=== PATIENT | male | born 1975 | race Caucasian/White ===

== ENCOUNTER 2019-05-23 15:25 | Emergency (ER) | payer BC ==
[2019-05-23 15:53] VITALS: BP 124/76
--- NOTE | 2019-05-23 16:11 | UC ---
Knee Pain HPI - HPI Summary HPI Summary: 43 yo male presents with RIGHT knee pain. 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 Around 05/15/19 he developed right knee pain on the medical aspect. Since that time has felt stiff, swollen, and unstable at times. He denies any specific injury. Has been resting and elevating with no relief. Has not been taking anything OTC. He saw his PCP this morning and was told it was likely soft tissue and he needs an MRI - they are going to try and schedule on, but will take 2-3 weeks. Pt came here for further evaluation. Denies numbness or tingling. - History of Current Complaint Chief Complaint: UCLowerExtremity Stated Complaint: KNEE PAIN Time Seen by Provider: 05/23/19 16:11 Hx Obtained From: Patient Onset/Duration: Sudden Onset Severity Initially: Moderate Severity Currently: Moderate Pain Intensity: 7 Pain Scale Used: 0-10 Numeric - Allergies/Home Medications Allergies/Adverse Reactions: Allergies Allergy/AdvReac Type Severity Reaction Status Date / Time No Known Allergies Allergy Verified 05/23/19 15:54 Home Medications: Home Medications Levothyroxine TAB* [Synthroid TAB*] 50 mcg PO 05/23/19 [History] PMH/Surg Hx/FS Hx/Imm Hx Endocrine History: Hypothyroidism Respiratory History: Asthma - Surgical History Surgical History: None - Family History Known Family History: Positive: Hypertension - Social History Occupation: Employed Full-time Lives: With Family Alcohol Use: None Substance Use Type: None Smoking Status (MU): Never Smoked Tobacco - Immunization History Most Recent Influenza Vaccination: NO Review of Systems All Other Systems Reviewed And Are Negative: No Constitutional: Positive: Negative Skin: Positive: Negative Respiratory: Positive: Negative Cardiovascular: Positive: Negative Neurovascular: Positive: Negative Musculoskeletal: Positive: Other: - Right knee pain Neurological: Positive: Negative Psychological: Positive: Negative Physical Exam - Summary Physical Exam Summary: GENERAL: NAD. WDWN. No pain distress. SKIN: No rashes, sores, lesions, or open wounds. CHEST: No accessory muscle use. Breathing comfortably and in no distress. CV: Pulses intact popliteal, PT, and DP. Cap refill <2seconds MSK: RIGHT KNEE: FROM - pain with full extension. POSITIVE jeyson on medial aspect. Strength 5/5. No edema or obvious bony deformities. No patella apprehension. Negative Josep, A/P drawer, and varus/valgus stress. NEURO: Alert. Sensations intact and symmetric B/L LEs PSYCH: Age appropriate behavior. Triage Information Reviewed: Yes Vital Signs: Initial Vital Signs Temp 99.0 F 05/23/19 15:49 Pulse 78 05/23/19 15:49 Resp 16 05/23/19 15:49 BP 124/76 05/23/19 15:49 Pulse Ox 97 05/23/19 15:49 Vital Signs Reviewed: Yes Diagnostics - Radiology Knee XR Radiology Interpretation Completed By: Radiologist Summary of Radiographic Findings: IMPRESSION: Small joint effusion with irregularity at the tibial tuberosity. Knee Pain Course/Dx - Course Course Of Treatment: XR as above. Suspect internal derangement of the knee - likely medial meniscus. Discussed at length with the pt. Recommend RICE, starting PT, and will refer him to Orthopedics for further evaluation. - Differential Dx/Diagnosis Provider Diagnosis: Right knee pain Discharge ED - Sign-Out/Discharge Documenting (check all that apply): Patient Departure All imaging exams completed and their final reports reviewed: Yes - Discharge Plan Condition: Stable Disposition: HOME Patient Education Materials: Swollen Knee Joint (ED), Meniscus Tear (ED) Referrals: Reinaldo Barrientos MD [Primary Care Provider] - Neva Herron MD [Medical Doctor] - As Soon As Possible Additional Instructions: If you develop a fever, shortness of breath, chest pain, new or worsening symptoms - please call your PCP or go to the ED immediately. Your knee X-ray was normal today. As discussed; I suspect you may have a meniscus injury to your knee. Please start physical therapy and call Orthopedics at the number below to schedule an appointment for further evaluation as soon as possible - you may benefit from an MRI or knee injections - Billing Disposition and Condition Condition: STABLE Disposition: Home
== END 2019-05-23 17:14 | disposition home or self-care (01) ==
LOC: UCEAST 15:25
DX: M25.561 Pain in right knee (principal); E03.9 Hypothyroidism, unspecified; J45.909 Unspecified asthma, uncomplicated; M25.461 Effusion, right knee; Z79.890 Hormone replacement therapy
CPT/HCPCS: 99211; G0463

== ENCOUNTER 2019-07-17 06:25 | Day surgery (SDC) | payer BC ==
[~2019-07-17 06:25] MED LIST: Buffered Lidocaine 1% SYRIN* 1 ML/SYRINGE INTRADERM ONE; Lactated Ringers 1000 ML Bag* 1,000 ML IV SCH
[2019-07-17] MEDS ORDERED: ceFAZolin 2 GM in NS PREMIX(*) 2 GM/100 ML BAG IVPB ONE (06:43)
[2019-07-17] MEDS ORDERED: ROPIVACAINE 5 MG/ML 30 ML BTL (0.5%) ONE (06:58)
[2019-07-17] MEDS ORDERED: EPINEPHRINE 1 MG/ML 1 ML VIAL ONE (06:58)
[2019-07-17] MEDS ORDERED: methylPREDNISolone ACETATE 80* 80 MG/ML 1 ML VIAL ONE (06:58)
[2019-07-17] MEDS ORDERED: fentaNYL* 50 MCG/ML 2 ML VIAL (100 MCG VIAL) ONE (07:16)
[2019-07-17] MEDS ORDERED: Midazolam* 1 MG/ML 2 ML VIAL (2 MG) ONE (07:17)
[2019-07-17] MEDS ORDERED: Acetaminophen TAB* 325 MG PO PRN (07:24)
[2019-07-17] MEDS ORDERED: Naloxone* 0.4 MG/ML 1 ML VIAL IV PRN (07:24)
[2019-07-17] MEDS ORDERED: Propofol* 10 MG/ML 20 ML BTL ONE (08:17)
[2019-07-17] MEDS ORDERED: Ondansetron INJ* 2 MG/ML VIAL ONE (08:17)
[2019-07-17] MEDS ORDERED: Dexamethasone IV* 4 MG/ML 1 ML (4 MG) ONE (08:17)
[2019-07-17] MEDS ORDERED: Lidocaine 2% PF * 5 ML VIAL ONE (08:17)
[2019-07-17] MEDS ORDERED: Ketorolac INJ* 30 MG/ML 1 ML VIAL ONE (08:55)
[2019-07-17] MEDS: HYDROmorphone INJ1* 1 MG/ML SYRINGE IV PRN ×2 (09:51→10:05)
[2019-07-17] MEDS ORDERED: HYDROmorphone INJ1* 1 MG/ML SYRINGE ONE (09:51)
[2019-07-17 11:44] VITALS: BP 103/68
--- NOTE | 2019-07-18 02:32 | OP ---
DATE OF OPERATION: 07/17/19 - [facility] DATE OF : 75 SURGEON: Neva Herron MD ENGINEER SERGEANT: LUCILA Page. Mr. Ha did help throughout the procedure with preparation of the leg, wound retraction, and manipulation of the knee and wound closure. ANESTHESIOLOGIST: Dr. Gardiner. ANESTHESIA: General. PRE-OP DIAGNOSIS: Right knee medial meniscal tear. POST-OP DIAGNOSIS: Right knee medial meniscal tear, lateral meniscal tear. OPERATIVE PROCEDURE: Right knee arthroscopy with partial medial meniscectomy and partial lateral meniscectomy. COMPLICATIONS: None. ESTIMATED BLOOD LOSS: Less than 25 cc. SPECIMEN: None. BRIEF HISTORY/INDICATIONS: Mr. Smith is a 43-year-old gentleman who developed acute onset of right knee pain with mechanical symptoms and locking sensation approximately 2 months ago. He failed conservative treatment. He eventually underwent MRI which did confirm the medial meniscal tear. The patient elected to undergo right knee arthroscopy due to continued pain and failure of conservative treatment. Informed consent was obtained from the patient. He understood the risks of surgery included, but were not limited to bleeding, infection, damage to nearby structures, continued pain, need for further surgery , anesthesia, retear of the meniscus, progression of arthritis, anesthesia complications, stroke, heart attack, blood clot, and . He wished to proceed. INTRAOPERATIVE FINDINGS: Intraoperatively, the patient was noted to have some minor degenerative changes in the medial and patellofemoral compartment. He had a parrot-beak type tear in the posterior aspect of the medial meniscus in the red- white zone as well as a radial type tear in the posterior horn of the lateral meniscus. DESCRIPTION OF PROCEDURE: Mr. Smith was identified in the preanesthesia unit. His right lower extremity was marked as the correct operative site. Informed consent was signed and placed in the chart. The patient was taken to the operating room and placed under anesthesia without difficulty. The right lower extremity was sterilely prepped and draped in the usual sterile fashion. Preop time-out was made to correctly identify the patient, side, and site. Appropriate perioperative antibiotics were given within 1 hour of incision. A standard 0.5 cm anterolateral portal incision was made with a 10 blade and carried down to the capsule. Trocar was introduced. Light and water sources were turned on, and there was immediate visualization of the suprapatellar pouch. A tour of the knee joint was performed. Suprapatellar pouch had no obvious abnormality. Patellofemoral compartment had minimal grade 1 and 2 Outerbridge cartilage changes. Medial gutter showed no loose body or plica. Medial compartment showed minimal degenerative changes, grade 1 and 2 Outerbridge cartilage changes. There was a parrot-beak type tear along the posterior 50% of the medial meniscus in the red-white zone. ACL and PCL appeared to be intact. The knee was placed in a [id number] position. There was a radial tear along the posterior horn of the lateral meniscus. Very minimal degenerative changes noted. Under direct visualization, a medial portal incision was made with a 15 blade. Probe was introduced. A second tour of the knee joint was performed. No additional tears were noted. Straight biter and shaver were used to perform partial medial meniscectomy. This was a parrot-beak type tear in the red-white zone of the posterior medial meniscus. This involved the posterior 50% of the medial meniscus. The tear was carefully excised. Further probing of the medial meniscus showed no additional tears. The knee was placed in a [id number] position. Shaver was used to excise the tear along the lateral meniscus. The radial type tear was easily excised. This was in the red-white zone. Further probing of the lateral meniscus showed no additional tears. The knee was copiously irrigated with sterile saline. All instruments were carefully removed. The incisions were closed with 3-0 nylon suture. Sterile Xeroform, 4x4s, and Webril were used to cover the incision. Albert wrap and cold pack were placed over this. The patient's anesthesia was reversed without difficulty. He was taken to the PACU in stable condition. Intended weightbearing will be weightbearing as tolerated. Intended DVT prophylaxis will be aspirin. He will follow up in 2 weeks' time for recheck and suture removal. [id number]/[facility] #: [id number] [facility]
== END 2019-07-17 11:30 | disposition home or self-care (01) ==
LOC: OR 06:25
PROVIDERS: ATTEND Orthopaedic Surgery Adult Reconstructive Orthopaedic Surgery
DX: S83.241A Other tear of medial meniscus, current injury, right knee, initial encounter (principal); S83.281A Other tear of lateral meniscus, current injury, right knee, initial encounter; X58.XXXA Exposure to other specified factors, initial encounter; Y92.9 Unspecified place or not applicable; M19.90 Unspecified osteoarthritis, unspecified site; E03.9 Hypothyroidism, unspecified; E66.9 Obesity, unspecified; M54.5 Low back pain
CPT/HCPCS: J0690; J1040; J1100; J1170; J1885; J2250; J2405; J2704; J2795; J3010